=== PATIENT | female | born 1960 | race Caucasian/White ===

== ENCOUNTER 2020-07-05 19:57 | Emergency (ER) | payer OTHER ==
[2020-07-05 20:12] VITALS: BP 137/77; PULSE 77; TEMP 98.5; BMI 25.6
[2020-07-05 20:54] LABS: BASO % 0.7 % (0-2.0); HEMATOCRIT 40.8 % (32.4-45.2); HEMOGLOBIN 14.2 GM/dL (10.7-15.3); LYMPH % 40.1 % (8-40); MCH 32.8 pg (25.7-33.7); MCHC 34.7 g/dl (32.0-36.0); MEAN CELL VOLUME 94.4 fl (80-96); MEAN PLT VOLUME 9.1 fl (7.5-11.1); MONO % 5.2 % (3.8-10.2); PLATELET COUNT 255 K/MM3 (134-434); RBC 4.32 M/mm3 (3.60-5.2); RDW 12.7 % (11.6-15.6); WHITE BLOOD COUNT 8.2 K/mm3 (4.0-10.0)
[2020-07-05 21:04] LABS: EPI CELLS 10 /uL (0-25.1); HYALINE CASTS 1 /uL (0-3.1); PH,URINE 6.5 (5.0-8.0); URINE APPEARANCE CLEAR; URINE BACTERIA 551 /uL (0-1359); URINE BILIRUBIN NEGATIVE (NEGATIVE); URINE COLOR YELLOW; URINE GLUCOSE (UA) NEGATIVE (NEGATIVE); URINE KETONE NEGATIVE (NEGATIVE); URINE LEUK ESTERASE TRACE (NEGATIVE); URINE NITRITE NEGATIVE (NEGATIVE); URINE PROTEIN NEGATIVE (NEGATIVE); URINE RBC 5 /uL (0-23.9); URINE UROBILINOGEN 0.2 mg/dL (0.2-1.0); URINE WBC 11 /uL (0-25.8)
[2020-07-05 21:24] LABS: ALBUMIN 4.4 g/dl (3.4-5.0); BLOOD UREA NITROGEN 9.4 mg/dL (7-18); CALCIUM 9.3 mg/dL (8.5-10.1)
[2020-07-05 21:28] LABS: CREATININE 0.7 mg/dL (0.55-1.3)
[2020-07-05 21:29] LABS: BILIRUBIN,TOTAL 0.4 mg/dL (0.2-1)
[2020-07-05] MEDS ORDERED: CEFPODOXIME PROXETIL 100 MG TABLET PO ONE (21:44)
[2020-07-05] MEDS ORDERED: CEPHALEXIN MONOHYDRATE 500 MG CAPSULE (UD) PO ONE (21:50)
[2020-07-05] MEDS ORDERED: CEPHALEXIN MONOHYDRATE 500 MG CAPSULE (UD) ONE (21:54)
== END 2020-07-05 22:10 | disposition home or self-care (01) ==
LOC: JER 19:57
DX: N10 Acute pyelonephritis (principal)
CPT/HCPCS: 36415; 74176-TC; 80053; 81003; 83690; 85025; 87086; 93005; 93010; 99285-25

== ENCOUNTER 2020-07-07 18:50 | Emergency (ER) | payer OTHER ==
[2020-07-07 19:00] VITALS: BP 133/66; PULSE 91; TEMP 98.2; BMI 24.7
[2020-07-07] MEDS ORDERED: LIDOCAINE 5% TOPICAL PATCH TP ONE (20:14)
[2020-07-07] MEDS ORDERED: valACYclovir HCL 1000 MG TABLET PO ONE (20:15)
[2020-07-07] MEDS ORDERED: KETOROLAC TROMETHAMINE 30 MG/1 ML VIAL IM ONE (20:16)
[2020-07-07] MEDS ORDERED: valACYclovir HCL 500 MG TABLET (FP) ONE (20:24)
[2020-07-07] MEDS ORDERED: KETOROLAC TROMETHAMINE 30 MG/1 ML VIAL ONE (20:25)
[2020-07-07] MEDS ORDERED: LIDOCAINE 5% TOPICAL PATCH ONE (20:25)
== END 2020-07-07 20:51 | disposition home or self-care (01) ==
LOC: JER 18:50
PROC: 3E0233Z Introduction of Anti-inflammatory into Muscle, Percutaneous Approach (ICD-10-PCS; principal; 2020-07-07)
DX: R10.9 Unspecified abdominal pain (principal); B02.9 Zoster without complications
CPT/HCPCS: 99284-25

== ENCOUNTER 2022-03-18 19:58 | Inpatient (IN) | payer OTHER ==
[2022-03-18] MEDS ORDERED: KETOROLAC TROMETHAMINE 30 MG/1 ML VIAL ONE (21:01)
[2022-03-18] MEDS ORDERED: ONDANSETRON 4 MG/2 ML VIAL ONE (21:02)
[2022-03-18] MEDS ORDERED: FAMOTIDINE 20 MG/50 ML IVPB 20 MG/50 ML MG IVPB ONE ×2 (21:03→21:29)
[2022-03-18] MEDS ORDERED: SODIUM CHLORIDE 1,000 ML IV STA (21:15)
[2022-03-18] MEDS ORDERED: SODIUM CHLORIDE 0.9% 1000 ML INFUS.BAG IV ONE (21:29)
[2022-03-18] MEDS ORDERED: KETOROLAC TROMETHAMINE 30 MG/1 ML VIAL IVPUSH ONE (21:29)
[2022-03-18] MEDS ORDERED: ONDANSETRON 4 MG/2 ML VIAL IVPUSH ONE (21:29)
[2022-03-18 21:39] LABS: BASO % 0.5 % (0-2.0); HEMATOCRIT 41.9 % (32.4-45.2); HEMOGLOBIN 14.3 GM/dL (10.7-15.3); LYMPH % 8.7 % (8-40); MCH 31.8 pg (25.7-33.7); MCHC 34.2 g/dl (32.0-36.0); MEAN CELL VOLUME 93.1 fl (80-96); MEAN PLT VOLUME 8.9 fl (7.5-11.1); MONO % 2.7 % (3.8-10.2); NEUT % 88.1 % (42.8-82.8); PLATELET COUNT 282 10^3/uL (134-434); RDW 12.4 % (11.6-15.6)
[2022-03-18 21:40] LABS: PH,URINE >= 9.0 (5.0-8.0); URINE APPEARANCE CLEAR; URINE BILIRUBIN NEGATIVE (NEGATIVE); URINE COLOR YELLOW; URINE GLUCOSE (UA) NEGATIVE (NEGATIVE); URINE KETONE 1+ (NEGATIVE); URINE LEUK ESTERASE NEGATIVE (NEGATIVE); URINE NITRITE NEGATIVE (NEGATIVE); URINE PROTEIN TRACE (NEGATIVE)
[2022-03-18] MEDS ORDERED: morphine CARPU-JECT 4 MG/1 ML DISP.SYRIN IVPUSH ONE (21:56)
[2022-03-18 22:05] LABS: ALBUMIN 4.3 g/dl (3.4-5.0); CALCIUM 9.9 mg/dL (8.5-10.1)
[2022-03-18 22:08] LABS: CREATININE 0.8 mg/dL (0.55-1.3)
[2022-03-18 22:10] LABS: BILIRUBIN,TOTAL 0.6 mg/dL (0.2-1); TOT PROT 7.9 g/dl (6.4-8.2)
[2022-03-18] MEDS ORDERED: morphine SULFATE 4 MG/ML VIAL ONE (22:21)
[2022-03-19] MEDS ORDERED: PIPERACILLIN/TAZOB 3.375 GM 3.375 GM in DEXTROSE 5%-WATER - 50 ML IVPB ONE (00:56)
[2022-03-19] MEDS ORDERED: ACETAMINOPHEN 1000 MG/100 ML BAG IVPB ONE (01:00)
[2022-03-19] MEDS ORDERED: morphine CARPU-JECT 4 MG/1 ML DISP.SYRIN IVPUSH ONE ×2 (01:00→02:00)
[2022-03-19] MEDS ORDERED: LACTATED RINGERS SOLUTION 1000 ML INFUS.BAG IV ONE (01:01)
[2022-03-19] MEDS ORDERED: PIPERACILLIN/TAZOB 3.375 GM 3.375 GM/50 ML BAG IVPB ONE (01:10)
[2022-03-19] MEDS ORDERED: ACETAMINOPHEN INJECTION 100 ML IVPB ONE ×2 (01:10→09:10)
[2022-03-19] MEDS ORDERED: morphine SULFATE 4 MG/ML VIAL ONE (01:10)
[2022-03-19] MEDS ORDERED: ALBUTEROL SO4 HFA INHALER IH PRN ×2 (03:36→11:39)
[2022-03-19] MEDS ORDERED: SODIUM CHLORIDE 1,000 ML IV SCH (03:45)
[2022-03-19 04:13] VITALS: BMI 26.7
[2022-03-19] MEDS ORDERED: GABAPENTIN 100 MG CAPSULE PO SCH (06:00)
[2022-03-19 08:25] LABS: BASO % 0.3 % (0-2.0); EOS % 0.2 % (0-4.5); HEMATOCRIT 35.7 % (32.4-45.2); HEMOGLOBIN 11.9 GM/dL (10.7-15.3); LYMPH % 24.3 % (8-40); MCHC 33.4 g/dl (32.0-36.0); MEAN CELL VOLUME 92.9 fl (80-96); MEAN PLT VOLUME 9.2 fl (7.5-11.1); MONO % 7.3 % (3.8-10.2); NEUT % 67.9 % (42.8-82.8); PLATELET COUNT 213 10^3/uL (134-434); RBC 3.84 M/mm3 (3.60-5.2); RDW 12.7 % (11.6-15.6); WHITE BLOOD COUNT 13.1 K/mm3 (4.0-10.0)
[2022-03-19 08:42] LABS: CALCIUM 8.5 mg/dL (8.5-10.1)
[2022-03-19 08:43] LABS: BLOOD UREA NITROGEN 8.4 mg/dL (7-18); INR 1.11 (0.83-1.09); PROTHROMBIN TIME (PATIENT) 12.9 SEC (9.7-13.0)
[2022-03-19 08:46] LABS: CREATININE 0.6 mg/dL (0.55-1.3); PHOSPHOROUS 3.8 mg/dL (2.5-4.9)
[2022-03-19 08:48] LABS: BILIRUBIN,TOTAL 0.7 mg/dL (0.2-1)
[2022-03-19] MEDS ORDERED: ONDANSETRON 4 MG/2 ML VIAL ONE (08:50)
[2022-03-19] MEDS ORDERED: DEXAMETHASONE SOD PHOSPHATE 4 MG/1 ML VIAL ONE (08:50)
[2022-03-19] MEDS ORDERED: ePHEDrine SULFATE 50 MG/1 ML AMPULE ONE (08:50)
[2022-03-19] MEDS ORDERED: KETOROLAC TROMETHAMINE 30 MG/1 ML VIAL ONE (08:50)
[2022-03-19] MEDS ORDERED: ROCURONIUM BROMIDE 50 MG/5 ML SYRINGE ONE (08:53)
[2022-03-19] MEDS ORDERED: PROPOFOL 20 ML ONE (08:53)
[2022-03-19] MEDS ORDERED: MIDAZOLAM HCL 2 MG/2 ML SINGLE DOSE VIAL ONE (08:53)
[2022-03-19] MEDS ORDERED: SODIUM CHLORIDE 0.9% P/F 10 ML VIAL IJ ONE (08:57)
[2022-03-19] MEDS ORDERED: LIDOCAINE HCL/PF 2% SDV 5ML VIAL ONE (08:57)
[2022-03-19] MEDS ORDERED: PIPERACILLIN/TAZOB 3.375 GM 3.375 GM in DEXTROSE 5%-WATER - 50 ML IVPB SCH (09:00)
[2022-03-19 09:04] LABS: ALBUMIN 3.1 g/dl (3.4-5.0)
[2022-03-19] MEDS ORDERED: ONDANSETRON 4 MG/2 ML VIAL IVPUSH PRN ×2 (09:06→11:39)
[2022-03-19] MEDS ORDERED: HYDROmorphone HCl 2 MG/ML VIAL IVPUSH PRN ×4 (09:07→11:39)
[2022-03-19] MEDS ORDERED: LACTATED RINGERS SOLUTION 1,000 ML IV SCH (09:15)
[2022-03-19] MEDS ORDERED: PIPERACILLIN/TAZOBACTAM 3.375 GM VIAL IVPB ONE (09:18)
[2022-03-19] MEDS ORDERED: BUPIVACAINE HCL/PF 0.5% (5MG/ML) 10 ML VIAL ONE (09:34)
[2022-03-19] MEDS ORDERED: PANTOPRAZOLE 40 MG TABLET PO SCH (10:00)
[2022-03-19] MEDS ORDERED: LORATADINE 10 MG TABLET PO SCH (10:00)
[2022-03-19] MEDS ORDERED: BUDESONIDE/FORMETEROL FUMARATE 160/4.5 mcg INHALER IH SCH (10:00)
[2022-03-19] MEDS ORDERED: CITALOPRAM HYDROBROMIDE 20 MG TABLET PO SCH (10:00)
[2022-03-19] MEDS ORDERED: traZODone HCL 50 MG TABLET (FP) PO SCH (10:00)
[2022-03-19] MEDS ORDERED: HYDROmorphone HCl 2 MG/ML VIAL ONE (10:37)
[2022-03-19] MEDS ORDERED: BUPIVACAINE HCL/PF 0.5% (5MG/ML) 10 ML VIAL IJ ONE ×2 (10:42)
[2022-03-19] MEDS ORDERED: SUGAMMADEX SODIUM 200 MG/2 ML VIAL ONE (10:55)
[2022-03-19] MEDS: LACTATED RINGERS SOLUTION 1,000 ML IV SCH (12:48)
[2022-03-19] MEDS ORDERED: ACETAMINOPHEN 1000 MG/100 ML BAG IVPB PRN (13:49)
[2022-03-19] MEDS ORDERED: oxyCODONE HCL 5 MG TABLET PO PRN (13:50)
[2022-03-19] MEDS: GABAPENTIN 100 MG CAPSULE PO SCH ×2 (15:05→21:27)
[2022-03-19] MEDS: oxyCODONE HCL 5 MG TABLET PO PRN ×2 (16:13→21:28)
[2022-03-19] MEDS ORDERED: CEFAZOLIN SODIUM 2 GM in DEXTROSE 5%-WATER 100 ML IVPB SCH (18:00)
[2022-03-19] MEDS: MONTELUKAST NA 10 MG TABLET PO SCH (21:28)
[2022-03-19] MEDS: BUDESONIDE/FORMETEROL FUMARATE 160/4.5 mcg INHALER IH SCH (21:45)
[2022-03-19] MEDS ORDERED: MONTELUKAST NA 10 MG TABLET PO SCH (22:00)
[2022-03-20] MEDS: oxyCODONE HCL 5 MG TABLET PO PRN ×2 (05:47→21:23)
[2022-03-20] MEDS: GABAPENTIN 100 MG CAPSULE PO SCH ×3 (05:48→21:23)
[2022-03-20] MEDS: LACTATED RINGERS SOLUTION 1,000 ML IV SCH ×2 (07:03→13:21)
[2022-03-20] MEDS ORDERED: PIPERACILLIN/TAZOB 3.375 GM 3.375 GM in DEXTROSE 5%-WATER - 50 ML IVPB SCH (09:00)
[2022-03-20 09:35] LABS: BASO % 0.1 % (0-2.0); HEMATOCRIT 34.9 % (32.4-45.2); HEMOGLOBIN 11.9 GM/dL (10.7-15.3); LYMPH % 17.8 % (8-40); MCH 32.1 pg (25.7-33.7); MCHC 34.2 g/dl (32.0-36.0); MEAN CELL VOLUME 93.9 fl (80-96); MONO % 5.7 % (3.8-10.2); NEUT % 76.4 % (42.8-82.8); PLATELET COUNT 209 10^3/uL (134-434); RBC 3.71 M/mm3 (3.60-5.2); RDW 12.7 % (11.6-15.6); WHITE BLOOD COUNT 14.9 K/mm3 (4.0-10.0)
[2022-03-20] MEDS: PANTOPRAZOLE 40 MG TABLET PO SCH (09:52)
[2022-03-20] MEDS: CITALOPRAM HYDROBROMIDE 20 MG TABLET PO SCH (09:52)
[2022-03-20] MEDS: LORATADINE 10 MG TABLET PO SCH (09:52)
[2022-03-20] MEDS: BUDESONIDE/FORMETEROL FUMARATE 160/4.5 mcg INHALER IH SCH ×2 (09:53→21:24)
[2022-03-20] MEDS: traZODone HCL 50 MG TABLET (FP) PO SCH (09:53)
[2022-03-20 10:03] LABS: CALCIUM 8.9 mg/dL (8.5-10.1)
[2022-03-20 10:08] LABS: CREATININE 0.7 mg/dL (0.55-1.3)
[2022-03-20 10:17] LABS: BILIRUBIN,TOTAL 0.4 mg/dL (0.2-1)
[2022-03-20] MEDS ORDERED: POTASSIUM CHLORIDE TABS 20 MEQ TABLET.ER (FP) PO ONE (11:04)
[2022-03-20] MEDS: DOCUSATE SODIUM 100 MG CAPSULE (FP) PO SCH ×2 (11:23→21:24)
[2022-03-20] MEDS ORDERED: ONDANSETRON 4 MG/2 ML VIAL IVPUSH PRN (13:09)
[2022-03-20] MEDS ORDERED: MECLIZINE HCL 25 MG TABLET (FP) PO ONE (14:39)
[2022-03-20] MEDS ORDERED: LACTATED RINGERS SOLUTION 1000 ML INFUS.BAG IV ONE (14:45)
[2022-03-20] MEDS: MONTELUKAST NA 10 MG TABLET PO SCH (21:23)
[2022-03-21] MEDS: oxyCODONE HCL 5 MG TABLET PO PRN (04:39)
[2022-03-21 09:22] LABS: HEMATOCRIT 35.7 % (32.4-45.2); HEMOGLOBIN 12.1 GM/dL (10.7-15.3); MCHC 33.9 g/dl (32.0-36.0); MEAN CELL VOLUME 94.5 fl (80-96); MEAN PLT VOLUME 8.6 fl (7.5-11.1); PLATELET COUNT 225 10^3/uL (134-434); RBC 3.78 M/mm3 (3.60-5.2); RDW 12.5 % (11.6-15.6); WHITE BLOOD COUNT 10.3 K/mm3 (4.0-10.0)
[2022-03-21 09:50] LABS: CALCIUM 9.1 mg/dL (8.5-10.1)
[2022-03-21 09:51] LABS: ALBUMIN 3.3 g/dl (3.4-5.0); BLOOD UREA NITROGEN 5.6 mg/dL (7-18); MAGNESIUM 1.9 mg/dL (1.8-2.4)
[2022-03-21 09:54] LABS: CREATININE 0.7 mg/dL (0.55-1.3); PHOSPHOROUS 3.1 mg/dL (2.5-4.9)
[2022-03-21 09:55] LABS: BILIRUBIN,TOTAL 0.3 mg/dL (0.2-1); TOT PROT 6.5 g/dl (6.4-8.2)
[2022-03-21 09:58] LABS: ANISOCYTOSIS 1+; MACROCYTOSIS 2+
[2022-03-21] MEDS: ACETAMINOPHEN 1000 MG/100 ML BAG IVPB SCH ×3 (10:26→22:00)
[2022-03-21] MEDS: PANTOPRAZOLE 40 MG TABLET PO SCH (10:33)
[2022-03-21] MEDS: CITALOPRAM HYDROBROMIDE 20 MG TABLET PO SCH (10:33)
[2022-03-21] MEDS: LORATADINE 10 MG TABLET PO SCH (10:33)
[2022-03-21] MEDS: traZODone HCL 50 MG TABLET (FP) PO SCH (10:33)
[2022-03-21] MEDS: DOCUSATE SODIUM 100 MG CAPSULE (FP) PO SCH ×2 (10:34→22:00)
[2022-03-21] MEDS: KETOROLAC TROMETHAMINE 30 MG/1 ML VIAL IVPUSH SCH ×2 (14:07→18:08)
[2022-03-21] MEDS: BUDESONIDE/FORMETEROL FUMARATE 160/4.5 mcg INHALER IH SCH ×2 (18:43→22:00)
[2022-03-21] MEDS ORDERED: SODIUM CHLORIDE 1,000 ML IV STA (19:19)
[2022-03-21 20:40] LABS: HEMATOCRIT 30.8 % (32.4-45.2); HEMOGLOBIN 10.6 GM/dL (10.7-15.3); MCH 32.5 pg (25.7-33.7); MCHC 34.4 g/dl (32.0-36.0); MEAN CELL VOLUME 94.4 fl (80-96); MEAN PLT VOLUME 8.6 fl (7.5-11.1); PLATELET COUNT 189 10^3/uL (134-434); RBC 3.27 M/mm3 (3.60-5.2); RDW 12.8 % (11.6-15.6); WHITE BLOOD COUNT 6.2 K/mm3 (4.0-10.0)
[2022-03-21 21:22] LABS: ANISOCYTOSIS 1+; MACROCYTOSIS 0
[2022-03-21] MEDS: MONTELUKAST NA 10 MG TABLET PO SCH (22:00)
[2022-03-21] MEDS: GABAPENTIN 100 MG CAPSULE PO SCH (22:00)
[2022-03-22] MEDS: KETOROLAC TROMETHAMINE 30 MG/1 ML VIAL IVPUSH SCH ×3 (03:03→18:00)
[2022-03-22 03:08] LABS: BASO % 0.6 % (0-2.0); EOS % 1.7 % (0-4.5); HEMATOCRIT 31.2 % (32.4-45.2); HEMOGLOBIN 10.6 GM/dL (10.7-15.3); LYMPH % 55.4 % (8-40); MCH 32.3 pg (25.7-33.7); MCHC 34.1 g/dl (32.0-36.0); MEAN CELL VOLUME 94.8 fl (80-96); MEAN PLT VOLUME 8.6 fl (7.5-11.1); MONO % 4.1 % (3.8-10.2); NEUT % 38.2 % (42.8-82.8); PLATELET COUNT 196 10^3/uL (134-434); RDW 12.8 % (11.6-15.6); WHITE BLOOD COUNT 6.7 K/mm3 (4.0-10.0)
[2022-03-22] MEDS: ACETAMINOPHEN 1000 MG/100 ML BAG IVPB SCH ×4 (04:00→22:32)
[2022-03-22 08:25] LABS: BASO % 0.6 % (0-2.0); EOS % 2.1 % (0-4.5); HEMATOCRIT 34.6 % (32.4-45.2); HEMOGLOBIN 11.7 GM/dL (10.7-15.3); LYMPH % 53.5 % (8-40); MCHC 33.9 g/dl (32.0-36.0); MEAN CELL VOLUME 94.4 fl (80-96); MEAN PLT VOLUME 9.1 fl (7.5-11.1); MONO % 4.4 % (3.8-10.2); NEUT % 39.4 % (42.8-82.8); PLATELET COUNT 213 10^3/uL (134-434); RBC 3.66 M/mm3 (3.60-5.2); RDW 12.6 % (11.6-15.6)
[2022-03-22 08:58] LABS: CALCIUM 8.7 mg/dL (8.5-10.1)
[2022-03-22 09:00] LABS: BLOOD UREA NITROGEN 5.5 mg/dL (7-18)
[2022-03-22 09:06] LABS: CREATININE 0.6 mg/dL (0.55-1.3); PHOSPHOROUS 3.4 mg/dL (2.5-4.9)
[2022-03-22] MEDS ORDERED: SIMETHICONE 80 MG TAB.CHEW (FP) PO PRN (09:25)
[2022-03-22] MEDS: LORATADINE 10 MG TABLET PO SCH (10:20)
[2022-03-22] MEDS: DOCUSATE SODIUM 100 MG CAPSULE (FP) PO SCH ×2 (10:20→22:32)
[2022-03-22] MEDS: CITALOPRAM HYDROBROMIDE 20 MG TABLET PO SCH (10:20)
[2022-03-22] MEDS: traZODone HCL 50 MG TABLET (FP) PO SCH (10:20)
[2022-03-22] MEDS: PANTOPRAZOLE 40 MG TABLET PO SCH (10:20)
[2022-03-22] MEDS: BUDESONIDE/FORMETEROL FUMARATE 160/4.5 mcg INHALER IH SCH ×2 (10:21→22:32)
[2022-03-22] MEDS: GABAPENTIN 100 MG CAPSULE PO SCH (22:32)
[2022-03-22] MEDS: MONTELUKAST NA 10 MG TABLET PO SCH (22:32)
[2022-03-23] MEDS: KETOROLAC TROMETHAMINE 30 MG/1 ML VIAL IVPUSH SCH ×3 (02:34→18:07)
[2022-03-23] MEDS: ACETAMINOPHEN 1000 MG/100 ML BAG IVPB SCH ×3 (04:31→16:36)
[2022-03-23 08:50] LABS: HEMATOCRIT 35.5 % (32.4-45.2); HEMOGLOBIN 12.1 GM/dL (10.7-15.3); MEAN PLT VOLUME 8.6 fl (7.5-11.1); PLATELET COUNT 223 10^3/uL (134-434); RBC 3.78 M/mm3 (3.60-5.2); RDW 12.6 % (11.6-15.6); WHITE BLOOD COUNT 6.7 K/mm3 (4.0-10.0)
[2022-03-23 09:14] LABS: CALCIUM 8.7 mg/dL (8.5-10.1)
[2022-03-23 09:15] LABS: ALBUMIN 2.9 g/dl (3.4-5.0); BLOOD UREA NITROGEN 7.6 mg/dL (7-18)
[2022-03-23 09:18] LABS: CREATININE 0.6 mg/dL (0.55-1.3)
[2022-03-23 09:19] LABS: BILIRUBIN,TOTAL 0.3 mg/dL (0.2-1); TOT PROT 5.7 g/dl (6.4-8.2)
[2022-03-23] MEDS: traZODone HCL 50 MG TABLET (FP) PO SCH (10:24)
[2022-03-23] MEDS: DOCUSATE SODIUM 100 MG CAPSULE (FP) PO SCH (10:24)
[2022-03-23] MEDS: CITALOPRAM HYDROBROMIDE 20 MG TABLET PO SCH (10:24)
[2022-03-23] MEDS: LORATADINE 10 MG TABLET PO SCH (10:24)
[2022-03-23] MEDS: PANTOPRAZOLE 40 MG TABLET PO SCH (10:24)
[2022-03-23] MEDS: BUDESONIDE/FORMETEROL FUMARATE 160/4.5 mcg INHALER IH SCH (10:25)
[2022-03-23 13:08] VITALS: RESP 18
[2022-03-23 18:08] VITALS: BP 118/65; PULSE 76; TEMP 98.2
== END 2022-03-23 18:20 | disposition home or self-care (01) | DRG 225 ==
LOC: JER 19:58 → UNDOADMIN 03-19 01:04 → JERBED 03-19 01:04 → J7W 03-19 03:40 → JASUSAT 03-19 11:06 → J7W 03-19 11:06 → JASUSAT 03-19 11:07 → J7W 03-20 11:36
PROVIDERS: ADMIT Internal Medicine
PROC: 0DTJ4ZZ Resection of Appendix, Percutaneous Endoscopic Approach (ICD-10-PCS; principal; 2022-03-20)
DX: K35.890 Other acute appendicitis without perforation or gangrene (principal); D64.9 Anemia, unspecified; J45.909 Unspecified asthma, uncomplicated; F32.A Depression, unspecified; K59.00 Constipation, unspecified; R42 Dizziness and giddiness; E78.5 Hyperlipidemia, unspecified
CPT/HCPCS: 36415; 74019-TC-FY; 74176-TC; 80048; 80053; 81003; 83036; 83605; 83735; 84100; 84443; 85025; 85027; 85610; 86850; 86900; 86901; 87086; 88304-TC; 93005; 93010; 94760; 97116-GP; 97162-GP; 99285-25; C9803-CS; U0003; U0005

== ENCOUNTER 2023-06-23 17:18 | Inpatient (IN) | payer OTHER ==
[2023-06-23] MEDS ORDERED: ACETAMINOPHEN INJECTION 100 ML IVPB ONE (18:21)
[2023-06-23] MEDS: SODIUM CHLORIDE 0.9% 500 ML INFUS.BAG IV ONE (18:30)
[2023-06-23] MEDS: ACETAMINOPHEN 1000 MG/100 ML BAG IVPB ONE (18:30)
[2023-06-23 18:47] LABS: BASO % 0.4 % (0-2.0); EOS % 1.7 % (0-4.5); HEMATOCRIT 41.7 % (32.4-45.2); HEMOGLOBIN 13.8 GM/dL (10.7-15.3); LYMPH % 22.8 % (8-40); MCH 31.1 pg (25.7-33.7); MCHC 33.2 g/dl (32.0-36.0); MEAN CELL VOLUME 93.7 fl (80-96); MEAN PLT VOLUME 8.8 fl (7.5-11.1); MONO % 5.5 % (3.8-10.2); NEUT % 69.6 % (42.8-82.8); PLATELET COUNT 233 10^3/uL (134-434); RBC 4.45 M/mm3 (3.60-5.2); RDW 13.3 % (11.6-15.6)
[2023-06-23 18:50] LABS: URINE APPEARANCE CLEAR; URINE BILIRUBIN NEGATIVE (NEGATIVE); URINE COLOR YELLOW; URINE GLUCOSE (UA) NEGATIVE (NEGATIVE); URINE KETONE NEGATIVE (NEGATIVE); URINE LEUK ESTERASE TRACE (NEGATIVE); URINE NITRITE NEGATIVE (NEGATIVE); URINE PROTEIN NEGATIVE (NEGATIVE); URINE UROBILINOGEN 0.2 mg/dL (0.2-1.0)
[2023-06-23 19:05] LABS: POTASSIUM 3.9 mmol/L (3.5-5.1)
[2023-06-23 19:08] LABS: ALBUMIN 4.1 g/dl (3.4-5.0); BLOOD UREA NITROGEN 8.4 mg/dL (7-18); CALCIUM 9.9 mg/dL (8.5-10.1)
[2023-06-23 19:11] LABS: CREATININE 0.8 mg/dL (0.55-1.3)
[2023-06-23 19:13] LABS: BILIRUBIN,TOTAL 0.4 mg/dL (0.2-1); TOT PROT 7.8 g/dl (6.4-8.2)
[2023-06-23 19:28] LABS: LACTIC ACID 2.4 mmol/L (0.4-2.0)
[2023-06-23] MEDS ORDERED: morphine SULFATE 4 MG/ML VIAL ONE (21:35)
[2023-06-23] MEDS: morphine CARPU-JECT 4 MG/1 ML DISP.SYRIN IVPUSH ONE (21:40)
[2023-06-23 22:20] LABS: EPI CELLS 8.9 /uL (0-25.1); HYALINE CASTS 0 /uL (0-3.1); URINE BACTERIA 14.2 /uL (0-1359); URINE RBC 6.1 /uL (0-23.9); URINE WBC 19.5 /uL (0-25.8)
[2023-06-23] MEDS: CIPROFLOXACIN 400 MG/D5W 400 MG/200 ML IVPB IVPB ONE (22:50)
[2023-06-23] MEDS ORDERED: HYDROmorphone HCl 2 MG/ML VIAL ONE (23:23)
[2023-06-24] MEDS: HYDROmorphone HCl 2 MG/ML VIAL IVPUSH ONE (00:13)
[2023-06-24] MEDS: SODIUM CHLORIDE 1,000 ML IV SCH (01:01)
[2023-06-24] MEDS: ACETAMINOPHEN 1000 MG/100 ML BAG IVPB SCH (01:02)
[2023-06-24] MEDS ORDERED: ALBUTEROL SO4 HFA INHALER IH PRN (03:16)
[2023-06-24 04:05] VITALS: RESP 18
[2023-06-24] MEDS ORDERED: CIPROFLOXACIN 400 MG/D5W 400 MG/200 ML IVPB IVPB SCH ×2 (06:30→18:30)
[2023-06-24 06:37] VITALS: BMI 27.1
[2023-06-24] MEDS: CIPROFLOXACIN 400 MG/D5W 400 MG/200 ML IVPB IVPB SCH (06:49)
[2023-06-24 09:51] LABS: HEMATOCRIT 36.7 % (32.4-45.2); HEMOGLOBIN 12.7 GM/dL (10.7-15.3); MCH 31.9 pg (25.7-33.7); MCHC 34.7 g/dl (32.0-36.0); PLATELET COUNT 200 10^3/uL (134-434); RBC 3.99 M/mm3 (3.60-5.2); RDW 13.4 % (11.6-15.6); WHITE BLOOD COUNT 9.7 K/mm3 (4.0-10.0)
[2023-06-24 10:07] LABS: POTASSIUM 3.7 mmol/L (3.5-5.1)
[2023-06-24 10:14] LABS: ALBUMIN 3.3 g/dl (3.4-5.0); CALCIUM 8.7 mg/dL (8.5-10.1)
[2023-06-24 10:15] LABS: BLOOD UREA NITROGEN 6.6 mg/dL (7-18); CREATININE 0.7 mg/dL (0.55-1.3); PHOSPHOROUS 2.7 mg/dL (2.5-4.9)
[2023-06-24 10:16] LABS: BILIRUBIN,TOTAL 0.6 mg/dL (0.2-1); TOT PROT 6.7 g/dl (6.4-8.2)
[2023-06-24] MEDS: ENOXAPARIN NA (PORCINE) 40 MG/0.4 ML DISP.SYRIN SQ SCH (10:19)
[2023-06-24] MEDS: BUDESONIDE/FORMETEROL FUMARATE 160/4.5 mcg INHALER IH SCH (10:57)
[2023-06-24] MEDS: MONTELUKAST NA 10 MG TABLET PO SCH (21:29)
[2023-06-24] MEDS: GABAPENTIN 100 MG CAPSULE PO SCH (21:29)
[2023-06-24] MEDS: ONDANSETRON 4 MG/2 ML VIAL IVPUSH PRN (23:26)
[2023-06-25] MEDS ORDERED: ONDANSETRON 4 MG/2 ML VIAL IVPUSH PRN (08:54)
[2023-06-25] MEDS: LORATADINE 10 MG TABLET PO SCH (09:32)
[2023-06-25] MEDS: PANTOPRAZOLE 40 MG TABLET PO SCH (09:32)
[2023-06-25 10:06] LABS: HEMATOCRIT 37.1 % (32.4-45.2); HEMOGLOBIN 12.5 GM/dL (10.7-15.3); MCH 31.5 pg (25.7-33.7); MCHC 33.8 g/dl (32.0-36.0); MEAN CELL VOLUME 93.4 fl (80-96); PLATELET COUNT 211 10^3/uL (134-434); RBC 3.97 M/mm3 (3.60-5.2); WHITE BLOOD COUNT 8.7 K/mm3 (4.0-10.0)
[2023-06-25 10:09] LABS: POTASSIUM 3.8 mmol/L (3.5-5.1)
[2023-06-25 10:15] LABS: ALBUMIN 3.4 g/dl (3.4-5.0); BLOOD UREA NITROGEN 6.1 mg/dL (7-18)
[2023-06-25 10:18] LABS: CREATININE 0.7 mg/dL (0.55-1.3)
[2023-06-25 10:20] LABS: BILIRUBIN,TOTAL 0.4 mg/dL (0.2-1)
[2023-06-25] MEDS: ONDANSETRON 4 MG/2 ML VIAL IVPUSH ONE (10:24)
[2023-06-25] MEDS: SIMETHICONE 80 MG TAB.CHEW (FP) PO PRN (10:24)
[2023-06-25 10:30] LABS: TOT PROT 6.8 g/dl (6.4-8.2)
[2023-06-25] MEDS: ACETAMINOPHEN 1000 MG/100 ML BAG IVPB PRN (14:29)
[2023-06-25] MEDS ORDERED: DOCUSATE SODIUM 100 MG CAPSULE (FP) PO PRN (15:29)
[2023-06-25] MEDS: BISACODYL 5 MG TABLET.DR (FP) PO PRN (17:30)
[2023-06-25] MEDS: DOCUSATE SODIUM 100 MG CAPSULE (FP) PO SCH (21:30)
[2023-06-26 09:03] LABS: HEMATOCRIT 34.5 % (32.4-45.2); HEMOGLOBIN 12.1 GM/dL (10.7-15.3); MCH 32.3 pg (25.7-33.7); MEAN CELL VOLUME 92.4 fl (80-96); PLATELET COUNT 194 10^3/uL (134-434); RBC 3.73 M/mm3 (3.60-5.2); RDW 13.4 % (11.6-15.6); WHITE BLOOD COUNT 5.8 K/mm3 (4.0-10.0)
[2023-06-26 09:36] LABS: CALCIUM 8.9 mg/dL (8.5-10.1)
[2023-06-26 09:37] LABS: BLOOD UREA NITROGEN 5.6 mg/dL (7-18)
[2023-06-26 09:40] LABS: CREATININE 0.6 mg/dL (0.55-1.3)
[2023-06-26 09:41] LABS: BILIRUBIN,TOTAL 0.3 mg/dL (0.2-1); TOT PROT 6.1 g/dl (6.4-8.2)
[2023-06-26 09:44] LABS: ALBUMIN 3.1 g/dl (3.4-5.0)
[2023-06-26] MEDS: POLYETHYLENE GLYCOL (HEALTHYLAX) 3350 17 GM PACKET PO SCH (10:16)
[2023-06-27 08:32] LABS: HEMATOCRIT 39.1 % (32.4-45.2); HEMOGLOBIN 13.4 GM/dL (10.7-15.3); MCH 31.8 pg (25.7-33.7); MCHC 34.2 g/dl (32.0-36.0); MEAN PLT VOLUME 8.7 fl (7.5-11.1); PLATELET COUNT 230 10^3/uL (134-434); RBC 4.21 M/mm3 (3.60-5.2); RDW 13.7 % (11.6-15.6); WHITE BLOOD COUNT 6.2 K/mm3 (4.0-10.0)
[2023-06-27 08:49] LABS: POTASSIUM 4.5 mmol/L (3.5-5.1)
[2023-06-27 08:50] LABS: CALCIUM 9.5 mg/dL (8.5-10.1)
[2023-06-27 08:51] LABS: ALBUMIN 3.6 g/dl (3.4-5.0)
[2023-06-27 08:54] LABS: CREATININE 0.6 mg/dL (0.55-1.3)
[2023-06-27 08:56] LABS: BILIRUBIN,TOTAL 0.3 mg/dL (0.2-1); TOT PROT 7.2 g/dl (6.4-8.2)
[2023-06-27 15:13] VITALS: BP 123/73; PULSE 95; TEMP 97.9
== END 2023-06-27 16:37 | disposition home or self-care (01) | DRG 720 ==
LOC: JER 17:18 → JERBED 21:31 → OBSVTOIN 06-24 00:16 → J6S 06-24 03:43
PROVIDERS: ADMIT Internal Medicine; ATTEND Internal Medicine
DX: A41.89 Other specified sepsis (principal); K57.32 Diverticulitis of large intestine without perforation or abscess without bleeding; F32.9 Major depressive disorder, single episode, unspecified; J45.909 Unspecified asthma, uncomplicated; F17.210 Nicotine dependence, cigarettes, uncomplicated; K76.9 Liver disease, unspecified; R91.1 Solitary pulmonary nodule
CPT/HCPCS: 0241U-QW; 36415; 74018-TC-FY; 74177-TC; 80053; 81003; 83605; 83690; 83735; 84100; 84484; 85025; 85027; 86922; 93005; 93010; 99285-25; G0378; J0131; Q9967

== ENCOUNTER 2023-12-07 04:38 | Observation (INO) | payer OTHER ==
[2023-12-07] MEDS ORDERED: MIDAZOLAM HCL 2 MG/2 ML SINGLE DOSE VIAL ONE (10:47)
[2023-12-07] MEDS ORDERED: ALBUTEROL SO4 HFA INHALER IH PRN (13:38)
[2023-12-07] MEDS ORDERED: ONDANSETRON 4 MG/2 ML VIAL IVPUSH PRN (13:43)
[2023-12-07] MEDS: LACTATED RINGERS SOLUTION 1,000 ML/1,000 ML INFUS.BAG IV SCH (14:14)
[2023-12-07 14:32] LABS: BASO % 0.6 % (0-2.0); EOS % 1.2 % (0-4.5); HEMATOCRIT 40.1 % (32.4-45.2); HEMOGLOBIN 13.2 GM/dL (10.7-15.3); LYMPH % 18.1 % (8-40); MCHC 32.9 g/dl (32.0-36.0); MEAN CELL VOLUME 94.2 fl (80-96); MEAN PLT VOLUME 9.2 fl (7.5-11.1); MONO % 2.7 % (3.8-10.2); NEUT % 77.4 % (42.8-82.8); PLATELET COUNT 192 10^3/uL (134-434); RBC 4.25 M/mm3 (3.60-5.2); RDW 13.2 % (11.6-15.6); WHITE BLOOD COUNT 7.7 K/mm3 (4.0-10.0)
[2023-12-07 14:52] LABS: ALBUMIN 3.7 g/dl (3.4-5.0)
[2023-12-07 14:53] LABS: BLOOD UREA NITROGEN 9.6 mg/dL (7-18)
[2023-12-07 14:56] LABS: CREATININE 0.6 mg/dL (0.55-1.3)
[2023-12-07 14:57] LABS: BILIRUBIN,TOTAL 0.4 mg/dL (0.2-1); TOT PROT 6.6 g/dl (6.4-8.2)
[2023-12-07] MEDS: SIMETHICONE 80 MG TAB.CHEW (FP) PO PRN (15:34)
[2023-12-07] MEDS: GABAPENTIN 100 MG CAPSULE PO SCH (15:34)
[2023-12-07] MEDS: ACETAMINOPHEN 500 MG TABLET (FP) PO PRN (15:34)
[2023-12-07] MEDS: HYDROmorphone HCl 2 MG/ML VIAL IVPUSH PRN (17:19)
[2023-12-07] MEDS: MONTELUKAST NA 10 MG TABLET PO SCH (21:41)
[2023-12-08 10:18] LABS: BASO % 0.5 % (0-2.0); EOS % 2.9 % (0-4.5); HEMATOCRIT 36.5 % (32.4-45.2); HEMOGLOBIN 12.4 GM/dL (10.7-15.3); LYMPH % 33.3 % (8-40); MCH 31.4 pg (25.7-33.7); MCHC 33.8 g/dl (32.0-36.0); MEAN CELL VOLUME 92.8 fl (80-96); MEAN PLT VOLUME 9.4 fl (7.5-11.1); MONO % 4.5 % (3.8-10.2); NEUT % 58.8 % (42.8-82.8); PLATELET COUNT 186 10^3/uL (134-434); RBC 3.93 M/mm3 (3.60-5.2)
[2023-12-08 12:43] VITALS: BMI 27.4
[2023-12-08] MEDS: BUDESONIDE/FORMETEROL FUMARATE 160/4.5 mcg INHALER IH SCH (13:14)
[2023-12-08] MEDS: LACTATED RINGERS SOLUTION 1,000 ML/1,000 ML INFUS.BAG IV SCH (13:15)
[2023-12-09 14:07] VITALS: BP 158/87; PULSE 82; RESP 17; TEMP 98.4
== END 2023-12-09 17:27 | disposition home or self-care (01) ==
LOC: JASU-ENDO 04:38 → J2C 13:40 → J8W 14:38 → UNDODISOB 12-09 12:06
PROVIDERS: ADMIT Internal Medicine; ATTEND Internal Medicine
PROC: 3E0337Z Introduction of Electrolytic and Water Balance Substance into Peripheral Vein, Percutaneous Approach (ICD-10-PCS; 2023-12-07)
PROC: 0DB48ZX Excision of Esophagogastric Junction, Via Natural or Artificial Opening Endoscopic, Diagnostic (ICD-10-PCS; 2023-12-07)
PROC: 0DB68ZX Excision of Stomach, Via Natural or Artificial Opening Endoscopic, Diagnostic (ICD-10-PCS; 2023-12-07)
PROC: BD47ZZZ Ultrasonography of Gastrointestinal Tract (ICD-10-PCS; 2023-12-07)
PROC: 3E033NZ Introduction of Analgesics, Hypnotics, Sedatives into Peripheral Vein, Percutaneous Approach (ICD-10-PCS; principal; 2023-12-07 12:00)
DX: C25.2 Malignant neoplasm of tail of pancreas (principal); K85.90 Acute pancreatitis without necrosis or infection, unspecified; J45.909 Unspecified asthma, uncomplicated; K57.90 Diverticulosis of intestine, part unspecified, without perforation or abscess without bleeding; K86.89 Other specified diseases of pancreas; Z90.49 Acquired absence of other specified parts of digestive tract; R91.8 Other nonspecific abnormal finding of lung field; K44.9 Diaphragmatic hernia without obstruction or gangrene
CPT/HCPCS: 36415; 74177-TC; 80053; 85025; 88305-TC; 88342-TC; 96361; 96374; G0378; Q9967